=== PATIENT | male | born 1980 | race Two or more races ===

== ENCOUNTER 2018-08-25 12:42 | Emergency (ER) | payer OTHER ==
[~2018-08-25] VITALS: Ht 177.8 cm; Wt 82.1 kg
[2018-08-25 12:55] VITALS: Ht 177.8 cm; Wt 82.1 kg
[2018-08-25 14:27] VITALS: BP 174/69
== END 2018-08-25 14:27 | disposition home or self-care (01) ==
LOC: ED 12:42
DX: S29.011A Strain of muscle and tendon of front wall of thorax, initial encounter (principal); X50.3XXA Overexertion from repetitive movements, initial encounter; Y93.B9 Activity, other involving muscle strengthening exercises; Y92.89 Other specified places as the place of occurrence of the external cause; Y99.8 Other external cause status
CPT/HCPCS: Q0092